=== PATIENT | female | born 2000 | race Asian ===

== ENCOUNTER 2021-06-25 12:39 | Emergency (ER) | payer OTHER ==
[2021-06-25] MEDS ORDERED: HYDROcodone/Acetaminophen 5/325 mg Tablet ONE (13:22)
[2021-06-25] MEDS ORDERED: Cyclobenzaprine 10 MG TAB ONE (15:24)
[2021-06-25] MEDS ORDERED: Ibuprofen 800 MG TAB ONE (15:24)
== END 2021-06-25 15:30 | disposition home or self-care (01) ==
LOC: MADERS 12:39
DX: S16.1XXA Strain of muscle, fascia and tendon at neck level, initial encounter (principal); S39.012A Strain of muscle, fascia and tendon of lower back, initial encounter; S00.83XA Contusion of other part of head, initial encounter; S00.512A Abrasion of oral cavity, initial encounter; S00.511A Abrasion of lip, initial encounter; M79.10 Myalgia, unspecified site; V43.52XA Car driver injured in collision with other type car in traffic accident, initial encounter
CPT/HCPCS: 70450; 70486; 71045; 72125